=== PATIENT | female | born 1990 | race African-American/Black ===

== ENCOUNTER 2021-09-02 23:12 | Emergency (ER) | payer OTHER ==
[~2021-09-02] VITALS: Ht 152.4 cm; Wt 63.5 kg
[2021-09-03 01:00] LABS: URINE BILIRUBIN NEGATIVE (Negative); URINE BLOOD 1+ (Negative); URINE CLARITY CLEAR; URINE COLOR YELLOW; URINE GLUCOSE-RANDOM NEGATIVE (Negative); URINE KETONES NEGATIVE (Negative); URINE LEUKOCYTES-REFLEX NEGATIVE (Negative); URINE NITRITE-REFLEX NEGATIVE (Negative); URINE PROTEIN NEGATIVE (Negative); URINE SPECIFIC GRAVITY 1.025 (1.005-1.030); URINE UROBILINOGEN 0.2 E.U./dl (0.2-1.0)
[2021-09-03 02:02] LABS: SQUAMOUS 4-10 Moderate /LPF (0-3)
[2021-09-03 02:03] LABS: CASTS None Seen /LPF (None Seen); URINE RBC None Seen /HPF (0-2); URINE WBC-REFLEX 0-5 Rare /HPF (0-5)
[2021-09-03 02:04] LABS: BACTERIA-REFLEX None Seen /HPF (None Seen); CRYSTALS None Seen /LPF (None Seen)
[2021-09-03] MEDS ORDERED: CIPROFLOXIN HC2.5 M1 TOP (02:37)
[2021-09-03] MEDS ORDERED: IBUPROFEN 600600 M1 PO (02:37)
[2021-09-03 02:56] VITALS: BP 118/82
== END 2021-09-03 02:56 | disposition home or self-care (01) ==
LOC: M.ERS 23:12
PROVIDERS: Personal Emergency Response Attendant
DX: H60.92 Unspecified otitis externa, left ear (principal)